=== PATIENT | male | born 1985 | race Caucasian/White ===

== ENCOUNTER 2018-04-24 12:20 | Inpatient (IN) ==
[2018-04-24] MEDS ORDERED: Piperacillin/Tazobactam 3.375 GM in 0.9 % Sodium Chloride Mini Bag 100 ML IVPB ONE (13:18)
[2018-04-24] MEDS ORDERED: *HR* FentaNYL (PF) 100 MCG/2 ML VIAL IVP ONE (13:23)
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
[2018-04-24 13:38] LABS: Basophils # 0.1 K/mcL (0.0-0.2); Basophils % 0.8 %; Eosinophils # 0.2 K/mcL (0.0-0.6); Hematocrit 51.2 % (37.5-50.1); Hemoglobin 17.2 g/dL (12.9-16.9); Immature Granulocytes % 0.3 % (0-4); Lymphocytes # 2.8 K/mcL (0.6-4.6); Mean Corpuscular HGB Conc 33.6 g/dL (31.6-35.5); Mean Corpuscular Volume 86.3 fL (83.0-100.0); Mean Platelet Volume 9.9 fL (9.4-12.4); Monocytes # 0.8 K/mcL (0.0-1.3); Monocytes % 10.7 %; Neutrophils # 3.6 K/mcL (1.6-8.9); Platelet Count 270 K/mcL (140-400); Red Blood Count 5.93 M/mcL (4.19-5.50); Red Cell Distribution Width 12.2 % (11.5-14.5); Segmented Neutrophils % 48.2 %
[2018-04-24 13:52] LABS: BUN/Creatinine Ratio 16 (6-26); Blood Urea Nitrogen 16 mg/dL (6-20); Calcium 9.9 mg/dL (8.6-10.3); Carbon Dioxide 29 mEq/L (23-29); Chloride 100 mEq/L (98-107); Glucose 120 mg/dL (70-105); Osmolality,Calculated 284 (280-300); Potassium 4.2 mEq/L (3.5-5.1); Sodium 136 mEq/L (136-145); eGFR For Non-African Americans > 60 (> 60)
[2018-04-24] MEDS: 0.9 % Sodium Chloride 1,000 ML IVC SCH ×3 (14:30→15:41)
[2018-04-24] MEDS ORDERED: Ibuprofen 400 MG TABLET PO PRN (15:47)
[2018-04-24] MEDS ORDERED: Acetaminophen 325 MG TABLET PO PRN (15:47)
[2018-04-24] MEDS ORDERED: Naloxone 0.4 MG/ML INJ IVP PRN (15:47)
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
--- NOTE | 2018-04-24 17:18 | Internal Med History&Physical ---
<China Vasquez - Last Filed: 04/24/18 17:39> Date of Encounter: 04/24/18 Time of Encounter: 03:05 Internal Medicine - H&P: HPI Chief complaint: left foot pain Admitted From: Emergency Dept Plans for Post Hospital Care: Home History of present illness: Mr. Singh is a 32 year old male who presented to the ED complaining of left foot pain. He has history of hepatitis C and this has not obtained any treatment which he was urged to follow-up with his PCP upon discharge. 3 weeks ago he recently injured it after a fork lift ran through his left foot. He went to the urgent care soon after and noted that x-ray of the foot at the time did not show any fractures. His foot became edematous and erythematous and he was referred to [facility] and subsequently he was referred to podiatry. He was started on Keflex which he took for 10 days. He noted the foot was not healing and was started on Bactrim which he took for 1 week. Since his injury he has difficulty bearing weight on the left foot limited due to pain. He notes that his sensation of the foot is intact denies any paresthesia. Additionally he mentioned that the foreign object that was recently localized on his left foot occurred about 7 months ago. He is also complaining of nausea for the past one day and one bout of emesis yesterday. And complains of subjective fever, denies chills, shortness of breath, chest pain, abdominal pain, changes in his bowels. Past Med Surg Social Fam HX - Past Medical History Medical history: no medical history Additional medical history: IVDA; on Suboxone Psychiatric history: depression - Past Surgical History Surgical History: other Additional surgical history: t&a, left testicle removed - Social History Smoking Status: Current every day smoker Packs per day: 1 Smokeless Tobacco Status: No Alcohol use: none, occasionally (history of past heavy alcohol use, stopped 4 years ago per patient) Drug use: opiates, IV Drug Use - Family History Maternal Grandfather Hx Family Cardiac Disorders: Yes Internal Medicine - H&P: Meds Naproxen [Naprosyn] 500 mg PO BID PRN 04/24/18 [History] Sulfamethoxazole/Trimeth DS [Bactrim DS] 1 each PO BID 04/24/18 [History] Allergy/AdvReac Type Severity Reaction Status Date / Time codeine Allergy Hives Verified 04/24/18 12:37 tramadol Allergy Hives Verified 04/24/18 12:37 All Systems PM: A 10-system review of systems was performed and is negative for pertinent findings except as documented above in the HPI. - Constitutional Constitutional: no chills, no fever(s), no weakness - EENT Eyes: no blurry vision, no change in vision, no pain - Cardiovascular Cardiovascular ROS IM: no chest pain, no diaphoresis, no dyspnea, no orthopnea, no palpitations - Respiratory Respiratory: no dyspnea, no wheezing - Gastrointestinal Gastrointestinal: nausea, no abdominal pain, no diarrhea - Musculoskeletal Musculoskeletal ROS IM: back pain (chronic low back pain), no muscle cramps, no muscle weakness, no numbness - Integumentary Integumentary IM: erythema (mild left dorsal aspect of foot), no rash - Neurological Neurological ROS: no abnormal gait, no dizziness, no numbness, no paresthesias, no tingling - Psychiatric Psychiatric: no anxiety, no confusion, no depression - Allergic/Immunologic Allergic/Immunologic: no wheezing - Constitutional Vitals: Temp Pulse Resp BP Pulse Ox 98.6 F 81 14 124/81 96 04/24/18 16:19 04/24/18 16:19 04/24/18 16:19 04/24/18 16:19 04/24/18 16:19 General appearance: Present: cooperative, A&O X 3, no acute distress Exam: General: Patient is alert, oriented, no acute distress, obese Head: atraumatic, normocephalic, Eye: normal appearance, PERRL, no scleral icterus, no conjunctival injection ENT: mucous membranes moist, normal external ear exam Neck: normal inspection, trachea midline, full ROM Chest: normal inspection, symmetric chest rise Respiratory: Good respiratory effort. Breath sounds present No wheeze, crackles or rhonchi. Cardiovascular: Regular rate and rhythm. s1 and s2 No clicks, rubs, gallops, or murmurs. Abdomen: Bowel sounds present normoactive x-4 quadrants. Abdomen is soft, nondistended. no epigastric tenderness. No guarding or rebound. Musculoskeletal: Tenderness of the left dorsal aspect of the foot, pain with active and passive motion of the left foot. No edema, no calf tenderness Skin: lower extremities cool to touch bilaterally Neuro: Alert and oriented x3. Psych: Patient's affect is normal, thought content congruent. - Head Head exam: Present: atraumatic, normocephalic - Expanded Head Exam Head exam expanded: Absent: contusion, hematoma, raccoon eyes - Eye Eye exam: Present: normal appearance, sclera anicteric. Absent: EOMI - ENT ENT exam: Present: mucous membranes moist - Neck Neck exam general surgery: Present: full ROM, trachea midline. Absent: lymphadenopathy - Respiratory Respiratory exam: Present: CTAB. Absent: rhonchi, stridor, wheezes - Cardiovascular Cardiovascular exam: Present: RRR, +S1, +S2. Absent: clicks, gallop - GI/Abdominal GI/Abdominal exam: Present: normal bowel sounds, soft. Absent: firm - Extremities Exam Extremities exam: Present: tenderness (of the left dorsal aspect of the foot ). Absent: joint swelling, pedal edema - Expanded Lower Extremities Exam Foot/Toe exam: Present: tenderness (of the dorsal aspect of left foot. Tenderness with passive and active motion. Pulses intact). Absent: ecchymosis, swelling - Neurological Exam Neurological exam: Present: alert, normal gait, oriented X3 - Psychiatric Psychiatric exam: Present: normal affect, normal mood - Skin Skin exam: Present: cyanosis (mild cyanosis noted of the left dorsal aspect), dry, intact Internal Med - H&P Results - Labs CBC & Chem 7: 04/24/18 13:13 04/24/18 13:13 Labs: Short CBC 04/24/18 Range/Units 13:13 WBC 7.4 (4.3-11.1) K/mcL Hgb 17.2 H (12.9-16.9) g/dL Hct 51.2 H (37.5-50.1) % Plt Count 270 (140-400) K/mcL Neutrophils # 3.6 (1.6-8.9) K/mcL BMP 04/24/18 13:13 Sodium 136 Potassium 4.2 Chloride 100 Carbon Dioxide 29 BUN 16 Creatinine 0.97 Glucose 120 H Calcium 9.9 - Impressions ITS Impressions Foot X-Ray 04/24/18 13:18 IMPRESSION: Persistent soft tissue foreign body D/ / Joe Berman MD / Joe Berman MD Interpreting Provider: Joe Berman MD - Assessment and plan (1) Cellulitis Current Visit: Yes Status: Acute Assessment and plan: Dorsal aspect of left foot secondary to recent injury caused by a forklift He also has a foreign object in his left foot History of IV drug use Has received 10 of Keflex and 1 week of Bactrim without any relief X-ray does not show any edema or bony abnormality Slight decrease in sensation of the lateral aspect of left foot Dorsalis pedis and posterior tibial pulses are intact Started on Zosyn day 1 vancomycin day 1 Plan for surgery by podiatry in the morning Nothing by mouth after midnight Qualifiers: Site of cellulitis: extremity Site of cellulitis of extremity: lower extremity Laterality: left Qualified Code(s): L03.116 - Cellulitis of left lower limb (2) Methamphetamine abuse Current Visit: No Status: Acute Assessment and plan: History of methamphetamine use He notes that he stopped using it one year ago (3) Retained foreign body Current Visit: Yes Status: Acute Assessment and plan: X-ray of the left foot noted metallic foreign body representing fragment of pain in between the shafts of third and fourth metatarsal He has history of IV drug use and denied injecting himself in his foot He attributes still foreign object to an injury that occurred 7 months ago and 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 Podiatry is consulted and will perform surgical intervention tomorrow NPO after midnight (4) Pain Current Visit: Yes Status: Acute Assessment and plan: Left foot pain worsened with bearing weight secondary to recent injury He has tried NSAIDs and ice to alleviate the pain While resting the pain is tolerable He notes allergy to codeine and tramadol which causes hives Ibuprofen or Tylenol for mild pain Toradol for moderate pain Morphine for severe pain (5) Hepatitis C Current Visit: Yes Status: Acute Assessment and plan: History of hepatitis C He attributes it to IV drug use He has not obtained any treatments for his hepatitis C He is urged to follow-up with his PCP upon discharge for hepatitis C treatment options Qualifiers: Viral hepatitis chronicity: chronic Hepatic coma status: without hepatic coma Qualified Code(s): B18.2 - Chronic viral hepatitis C (6) DVT prophylaxis Current Visit: Yes Status: Acute Assessment and plan: SubQ heparin (7) Nicotine dependence Current Visit: Yes Status: Acute Assessment and plan: Smokes 1 pack per day Declined nicotine patch at this time Qualifiers: Nicotine product type: cigarettes Substance use status: uncomplicated Qualified Code(s): F17.210 - Nicotine dependence, cigarettes, uncomplicated - Time Spent With Patient Total time spent is greater than 50% in coordination of care (as documented) at patient's floor/unit and/or counseling patient: <Louie Boogie - Last Filed: 04/24/18 19:19> Date of Encounter: 04/24/18 Internal Medicine - H&P: HPI History of present illness: Mr. Singh is a 32 year old male All Systems PM: A 10-system review of systems was performed and is negative for pertinent findings except as documented above in the HPI. - Constitutional Vitals: Temp Pulse Resp BP Pulse Ox 97.9 F 84 16 124/78 100 04/24/18 18:24 04/24/18 18:24 04/24/18 18:24 04/24/18 18:24 04/24/18 18:24 Internal Med - H&P Results - Labs CBC & Chem 7: 04/24/18 13:13 04/24/18 13:13 Labs: Short CBC 04/24/18 Range/Units 13:13 WBC 7.4 (4.3-11.1) K/mcL Hgb 17.2 H (12.9-16.9) g/dL Hct 51.2 H (37.5-50.1) % Plt Count 270 (140-400) K/mcL Neutrophils # 3.6 (1.6-8.9) K/mcL BMP 04/24/18 13:13 Sodium 136 Potassium 4.2 Chloride 100 Carbon Dioxide 29 BUN 16 Creatinine 0.97 Glucose 120 H Calcium 9.9 - Impressions ITS Impressions Foot X-Ray 04/24/18 13:18 IMPRESSION: Persistent soft tissue foreign body D/ / Joe Berman MD / Joe Berman MD Interpreting Provider: Joe Berman MD - Assessment and plan (1) Methamphetamine abuse Current Visit: No Status: Acute (2) Retained foreign body Current Visit: Yes Status: Acute (3) Cellulitis Current Visit: Yes Status: Acute Qualifiers: Site of cellulitis: extremity Site of cellulitis of extremity: lower extremity Laterality: left Qualified Code(s): L03.116 - Cellulitis of left lower limb (4) Pain Current Visit: Yes Status: Acute (5) DVT prophylaxis Current Visit: Yes Status: Acute (6) Hepatitis C Current Visit: Yes Status: Acute Qualifiers: Viral hepatitis chronicity: chronic Hepatic coma status: without hepatic coma Qualified Code(s): B18.2 - Chronic viral hepatitis C (7) Nicotine dependence Current Visit: Yes Status: Acute Qualifiers: Nicotine product type: cigarettes Substance use status: uncomplicated Qualified Code(s): F17.210 - Nicotine dependence, cigarettes, uncomplicated - Time Spent With Patient Total time spent is greater than 50% in coordination of care (as documented) at patient's floor/unit and/or counseling patient: - Attending Attestation I have seen and examined this patient independently. I have discussed with resident physician Dr Vasquez regarding the management plan. Agree with the documentation.
[2018-04-24] MEDS: *HR* Heparin 5,000 UNIT/ML VIAL SQ SCH (17:34)
[2018-04-24] MEDS: MORPHINE SUL Oral CONC 10 MG/0.5 ML ORAL.SYG SL PRN ×2 (18:10→23:56)
--- NOTE | 2018-04-24 18:32 | Anesthesia Evaluation PreOp ---
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: Denies Any Significant HX Other Medical History: Other (hx IVDU (last used years ago); used to be on suboxone but no longer takes this medication) Anesthesia History: No Prior Anesthetic Complications Alcohol Use: none, occasionally (history of past heavy alcohol use, stopped 4 years ago per patient) Drug use: opiates, IV Drug Use Medications and Allergies Naproxen [Naprosyn] 500 mg PO BID PRN 04/24/18 [History] Sulfamethoxazole/Trimeth DS [Bactrim DS] 1 each PO BID 04/24/18 [History] Allergy/AdvReac Type Severity Reaction Status Date / Time codeine Allergy Hives Verified 04/24/18 12:37 tramadol Allergy Hives Verified 04/24/18 12:37 - Meds/Allergy Pre-op Review Medications Reviewed: Yes Allergies Reviewed: Yes Beta Blockers on Current Med List: No Anesthesia Results - Labs 04/24/18 13:13 04/24/18 13:13 Anesthesia Exam Last Vital Signs Temp 97.9 F 04/24/18 18:24 Pulse 84 04/24/18 18:24 Resp 16 04/24/18 18:24 BP 124/78 04/24/18 18:24 Pulse Ox 100 04/24/18 18:24 Weight: 75 kg NPO (# of Hours): > 8 hrs - HEENT Pupil (Motor): Pupils equal, EOMI Mallampati: II Teeth: Normal Oral Opening: Greater than 3 - [place] GLUE DRIER LOC: Oriented - Cardiac Rhythm: Regular Murmur: None - Pulmonary Breath Sounds: bilateral Clear Respiratory Effort: Symmetrical Anesthesia Assess/Plan ASA Score: 2 Level of consciousness: Cooperative Anesthetic Plan: General Monitoring Plan: Standard Monitors Recovery Plan: PACU
[2018-04-24 19:12] LABS: Amphetamine Screen,Urine Negative ng/mL (Cutoff=1000); Barbiturate Screen,Urine Negative ng/mL (Cutoff=200); Benzodiazepines Screen,Urine Negative ng/mL (Cutoff=200); Cannabinoid Screen,Urine Negative ng/mL (Cutoff = 50); Cocaine Screen,Urine Negative ng/mL (Cutoff= 300); Opiate Screen,Urine Negative ng/mL (Cutoff=300); Phencyclidine Screen,Urine Negative ng/mL (Cutoff=25)
[2018-04-24] MEDS: Piperacillin/Tazobactam 3.375 GM in 0.9 % Sodium Chloride Mini Bag 100 ML IVPB SCH (23:57)
[2018-04-25] MEDS: *HR* Heparin 5,000 UNIT/ML VIAL SQ SCH ×2 (06:15→18:40)
[2018-04-25] MEDS: MORPHINE SUL Oral CONC 10 MG/0.5 ML ORAL.SYG SL PRN ×2 (07:15→20:04)
[2018-04-25] MEDS: Piperacillin/Tazobactam 3.375 GM in 0.9 % Sodium Chloride Mini Bag 100 ML IVPB SCH ×3 (08:01→23:16)
--- NOTE | 2018-04-25 08:43 | Internal Med Progress Note ---
<Ethan Joe - Last Filed: 04/25/18 08:52> Hospitalist Progress Note - Encounter Date of Encounter: 04/25/18 Time of Encounter: 08:15 - Subjective Interval History: Mr. Singh was seen and examined at bedside today. The patient was resting comfortably and was in no acute distress. Patient states pain is well controlled. Patient denies any other complaints at this time. Patient denies fever, chills, cough, CP, SOB, abdominal pain, calf pain, or nausea or vomiting. Patient is scheduled for formal I&D later today by Dr. Castellano. - Exam Vitals: Temp Pulse Resp BP Pulse Ox 98.0 F 81 14 101/61 96 04/25/18 06:37 04/25/18 06:37 04/25/18 06:37 04/25/18 06:37 04/25/18 06:37 Exam: General: Patient is alert, oriented, no acute distress. Head: atraumatic, normocephalic Eye: normal appearance, EOMI, no scleral icterus, no conjunctival injection Neck: trachea midline, full ROM Chest: normal inspection, symmetric chest rise Respiratory: Clear to auscultation bilaterally with no evidence of wheeze, crackles or rhonchi. Cardiovascular: Regular rate and rhythm. s1 and s2 normal. No clicks, rubs, gallops, or murmurs. Abdomen: Bowel sounds present, normoactive x-4 quadrants. Abdomen is soft, nondistended. no epigastric tenderness. No guarding or rebound. Extremities: Erythema and warmth dorsal aspect of left foot.No induration, no fluctuance, Tenderness over the dorsal aspect of the left foot, Tenderness over the most distal portion of plantar aspect of left foot, pain with active and passive motion of the 2nd, 3rd, 4th and 5th toes. No edema, no calf tenderness. No lymphadenopathy, no lymphangitis. DP and PT pulses 2+ bilaterally. Slight decrease in sensation over lateral aspect of left foot to light touch compared to contralateral side. Neuro: Alert and oriented x3. Psych: Patient's affect is normal, thought content congruent. - Assessment and Plan (1) Cellulitis Current Visit: Yes Status: Acute Assessment and Plan: a. Dorsal aspect of left foot secondary to recent injury caused by a forklift - He also has a foreign object in his left foot noted on Xray yesterday as well as previous xray c. History of IV drug use d. Has received 10 days of Keflex and 1 week of Bactrim without any relief e. X-ray does not show any edema or bony abnormality f. Slight decrease in sensation of the lateral aspect of left foot g. Dorsalis pedis and posterior tibial pulses are intact Plan: h. Continue Zosyn and Vancomycin i. Plan for formal I&D by podiatry today j. Keep NPO until surgery then advance diet as recommended by surgery k. Ibuprofen or Tylenol for mild pain l. Toradol for moderate pain m. Morphine for severe pain (2) Retained foreign body Current Visit: Yes Status: Acute Assessment and Plan: a. X-ray of the left foot noted metallic foreign body representing fragment of pain in between the shafts of third and fourth metatarsal - Foreign object noted on previous x-rays - He has history of IV drug use and denied injecting himself in his foot b. 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 Podiatry is consulted and will perform formal I&D today d. Keep NPO until surgery then advance diet as recommended by surgery (3) Hepatitis C Current Visit: Yes Status: Chronic Assessment and Plan: a. History of hepatitis C - AST = 48, ALT = 97; both slightly elevated compared to previous b. He attributes to IV drug use c. He has not obtained any treatments for his hepatitis C d. He is urged to follow-up with his PCP upon discharge for hepatitis C treatmen t options (4) Nicotine dependence Current Visit: Yes Status: Acute Assessment and Plan: a. Smokes 1 pack per day b.Declined nicotine patch at this time (5) Methamphetamine abuse Current Visit: No Status: Acute Assessment and Plan: a. History of methamphetamine use - UDS negative for all substances b. He notes that he stopped using it one year ago DVT Prophylaxis: subq heparin - Time Spent with Patient Total time spent is greater than 50% in coordination of care (as documented) at patient's floor/unit and/or counseling patient: Internal Medicine: Result - Labs CBC & Chem 7: 04/24/18 13:13 04/25/18 08:09 Labs: Short CBC 04/24/18 Range/Units 13:13 WBC 7.4 (4.3-11.1) K/mcL Hgb 17.2 H (12.9-16.9) g/dL Hct 51.2 H (37.5-50.1) % Plt Count 270 (140-400) K/mcL Neutrophils # 3.6 (1.6-8.9) K/mcL BMP 04/24/18 13:13 Sodium 136 Potassium 4.2 Chloride 100 Carbon Dioxide 29 BUN 16 Creatinine 0.97 Glucose 120 H Calcium 9.9 - Impressions Impressions Foot X-Ray 04/24/18 13:18 IMPRESSION: Persistent soft tissue foreign body D/ / Joe Berman MD / Joe Berman MD Interpreting Provider: Joe Berman MD Extremity Ultrasound 04/24/18 20:00 IMPRESSION: Findings most consistent with subcutaneous phlegmonous change between the 3rd and 4th toes. No drainable abscess identified. A linear foreign body is re-identified. D/ / 04/24/2018 20:30:19 Reggie Singleton MD / mady Interpreting Provider: Reggie Singleton MD Consult Discharge Plan - Plan Referrals: NONE,PCP [Primary Care Provider] - <KeaganLouie - Last Filed: 04/25/18 15:24> Hospitalist Progress Note - Encounter Date of Encounter: 04/25/18 - Exam Vitals: Temp Pulse Resp BP Pulse Ox 98.4 F 90 14 101/85 95 04/25/18 10:49 04/25/18 10:49 04/25/18 10:49 04/25/18 10:49 04/25/18 10:49 - Assessment and Plan (1) Methamphetamine abuse Current Visit: No Status: Acute (2) Retained foreign body Current Visit: Yes Status: Acute (3) Cellulitis Current Visit: Yes Status: Acute (4) Pain Current Visit: Yes Status: Acute (5) DVT prophylaxis Current Visit: Yes Status: Acute (6) Hepatitis C Current Visit: Yes Status: Chronic (7) Nicotine dependence Current Visit: Yes Status: Acute - Time Spent with Patient Total time spent is greater than 50% in coordination of care (as documented) at patient's floor/unit and/or counseling patient: Internal Medicine: Result - Labs CBC & Chem 7: 04/25/18 09:18 04/25/18 08:09 Labs: Short CBC 04/25/18 Range/Units 09:18 WBC 4.5 (4.3-11.1) K/mcL Hgb 14.1 D (12.9-16.9) g/dL Hct 42.6 (37.5-50.1) % Plt Count 214 (140-400) K/mcL Neutrophils # 1.8 (1.6-8.9) K/mcL BMP 04/25/18 08:09 Sodium 139 Potassium 4.2 Chloride 106 Carbon Dioxide 29 BUN 10 Creatinine 0.96 Glucose 123 H Calcium 8.9 Liver Function 04/25/18 Range/Units 08:09 Total Bilirubin 0.4 (0.3-1.0) mg/dL AST 48 H (13-39) Units/L ALT 97 H (7-52) Units/L Alkaline Phosphatase 89 (34-104) Units/L Albumin 3.7 (3.5-5.7) g/dL - Impressions Impressions Extremity Ultrasound 04/24/18 20:00 IMPRESSION: Findings most consistent with subcutaneous phlegmonous change between the 3rd and 4th toes. No drainable abscess identified. A linear foreign body is re-identified. D/ / 04/24/2018 20:30:19 Reggie Singleton MD / mady Interpreting Provider: Reggie Singleton MD - Attending Attestation I have seen and examined this patient independently. I have discussed with resident physician Dr Dr Marcus and medical student Mr Joe regarding the management plan. Agree with the documentation. __ <Ethan Joe - Last Filed: 04/25/18 08:52> (1) Cellulitis Qualifiers: Site of cellulitis: extremity Site of cellulitis of extremity: lower extremity Laterality: left Qualified Code(s): L03.116 - Cellulitis of left lower limb (3) Hepatitis C Qualifiers: Viral hepatitis chronicity: chronic Hepatic coma status: without hepatic coma Qualified Code(s): B18.2 - Chronic viral hepatitis C (4) Nicotine dependence Qualifiers: Nicotine product type: cigarettes Substance use status: uncomplicated Qualified Code(s): F17.210 - Nicotine dependence, cigarettes, uncomplicated <Louie Boogie - Last Filed: 04/25/18 15:24> (3) Cellulitis Qualifiers: Site of cellulitis: extremity Site of cellulitis of extremity: lower extremity Laterality: left Qualified Code(s): L03.116 - Cellulitis of left lower limb (6) Hepatitis C Qualifiers: Viral hepatitis chronicity: chronic Hepatic coma status: without hepatic coma Qualified Code(s): B18.2 - Chronic viral hepatitis C (7) Nicotine dependence Qualifiers: Nicotine product type: cigarettes Substance use status: uncomplicated Qualified Code(s): F17.210 - Nicotine dependence, cigarettes, uncomplicated
[2018-04-25 08:48] LABS: Alanine Aminotransferase 97 Units/L (7-52); Albumin 3.7 g/dL (3.5-5.7); Albumin/Globulin Ratio 1.5 (1.1-2.2); Alkaline Phosphatase 89 Units/L (34-104); Aspartate Amino Transferase 48 Units/L (13-39); BUN/Creatinine Ratio 10 (6-26); Bilirubin,Total 0.4 mg/dL (0.3-1.0); Blood Urea Nitrogen 10 mg/dL (6-20); Calcium 8.9 mg/dL (8.6-10.3); Carbon Dioxide 29 mEq/L (23-29); Chloride 106 mEq/L (98-107); Globulin 2.5 g/dL (2.4-3.5); Glucose 123 mg/dL (70-105); Osmolality,Calculated 288 (280-300); Potassium 4.2 mEq/L (3.5-5.1); Sodium 139 mEq/L (136-145); Total Protein 6.2 g/dL (6.4-8.9); eGFR For Non-African Americans > 60 (> 60)
[2018-04-25 09:17] LABS: Amphetamine Screen,Urine Negative ng/mL (Cutoff=1000); Barbiturate Screen,Urine Negative ng/mL (Cutoff=200); Benzodiazepines Screen,Urine Negative ng/mL (Cutoff=200); Cannabinoid Screen,Urine Negative ng/mL (Cutoff = 50); Cocaine Screen,Urine Negative ng/mL (Cutoff= 300); Opiate Screen,Urine Positive ng/mL (Cutoff=300); Phencyclidine Screen,Urine Negative ng/mL (Cutoff=25)
[2018-04-25 10:03] LABS: Basophils # 0.1 K/mcL (0.0-0.2); Basophils % 1.1 %; Eosinophils # 0.2 K/mcL (0.0-0.6); Eosinophils % 3.8 %; Hematocrit 42.6 % (37.5-50.1); Hemoglobin 14.1 g/dL (12.9-16.9); Immature Granulocytes % 0.2 % (0-4); Lymphocytes # 1.9 K/mcL (0.6-4.6); Lymphocytes % 42.4 %; Mean Corpuscular HGB Conc 33.1 g/dL (31.6-35.5); Mean Corpuscular Hemoglobin 29.1 pg (28.0-33.3); Mean Corpuscular Volume 87.8 fL (83.0-100.0); Mean Platelet Volume 10.1 fL (9.4-12.4); Monocytes # 0.6 K/mcL (0.0-1.3); Monocytes % 12.3 %; Neutrophils # 1.8 K/mcL (1.6-8.9); Platelet Count 214 K/mcL (140-400); Red Blood Count 4.85 M/mcL (4.19-5.50); Red Cell Distribution Width 12.1 % (11.5-14.5); Segmented Neutrophils % 40.2 %
[2018-04-25] MEDS ORDERED: 0.9 % Sodium Chloride 1,000 ML IVC SCH (14:15)
[2018-04-25] MEDS ORDERED: Albuterol 2.5 MG/3 ML NEBULIZER IH ONE (15:39)
[2018-04-25] MEDS ORDERED: Acetaminophen IV 1,000 MG/100 ML INFUS..BTL ONE (15:41)
[2018-04-25] MEDS ORDERED: Famotidine 20 MG/2 ML VIAL ONE (15:41)
[2018-04-25] MEDS ORDERED: Vancomycin 1,000 MG VIAL ONE (15:42)
[2018-04-25] MEDS ORDERED: Albuterol 2.5 MG/3 ML NEBULIZER ONE (15:46)
[2018-04-25] MEDS ORDERED: *HR* Midazolam HCl 2 MG/2 ML VIAL ONE (15:46)
[2018-04-25] MEDS ORDERED: Lidocaine -MPF 2% 2 ML VIAL ONE (15:46)
[2018-04-25] MEDS ORDERED: *HR* FentaNYL (PF) 100 MCG/2 ML VIAL ONE (15:46)
[2018-04-25] MEDS ORDERED: Propofol 500 MG/50 ML INFUS..BTL ONE (15:46)
[2018-04-25] MEDS ORDERED: *HR* Propofol 200 MG/20 ML VIAL IVP ONE (15:50)
[2018-04-25] MEDS ORDERED: *HR* PHENYLEPHRINE 1,000 MCG/10 ML SYRINGE IVP ONE (17:08)
--- NOTE | 2018-04-25 17:27 | Anesthesia Evaluation Post Op ---
Date of Encounter: 04/25/18 Time of Encounter: 17:26 - Vital Signs Vital Signs: Vital Signs/O2 Sat/Glucose, Most Recent Temp Pulse Resp BP Pulse Ox 98.4 F 67 15 120/74 99 04/25/18 10:49 04/25/18 17:11 04/25/18 17:11 04/25/18 17:11 04/25/18 17:11 - Lungs Lungs: Clear Ascult./Percussion - Airway Airway: Non-obstructed - Cardiovascular Regular Rate, Baseline Rhythm - Mental Status Mental Status: Alert & Oriented, Answers Appropriately - Pain Pain Scale: 0 Pain Scale used: Numeric (1 - 10) - Nausea Vomiting Nausea Vomiting: Not Present - Hydration Hydration: NPO Notes: 04/25/18 17:27 naac - Discharge PostOp Status: Transfer Patient to floor
[2018-04-25] MEDS ORDERED: Naloxone 0.4 MG/ML INJ IVP PRN (17:33)
[2018-04-25] MEDS ORDERED: Ibuprofen 400 MG TABLET PO PRN (17:33)
[2018-04-25] MEDS ORDERED: Acetaminophen 325 MG TABLET PO PRN (17:33)
--- NOTE | 2018-04-25 17:38 | Orthopedic Operative Note ---
Date of procedure: 04/25/18 Pre-op diagnosis: left foot infection, foreign body Post-op diagnosis: same Procedure: 04/25/18 17:34 1. Removal of foreign body left foot 2. Incision and drainage left foot to deep fascia Implants: None Complications: None Anesthesia: MAC Local Anesthetics: 0.5% Sensorcaine HCL SubQ (cc), 1% Lidocaine HCL SubQ (cc) Surgeon: Kevin Castellano Was there an assistant oceanographer present: No Estimated blood loss (cc): 1 Tourniquet Time (Minutes): 36 Specimen: soft tissue to pathology, foreign body to pathology Condition: stable Disposition: floor Procedure in Detail: 04/25/18 19:42 INDICATIONS AND CONSENT Romel Singh is a 32 year old male who initially presented with redness and pain to the left foot after a reported accident at work where he reports a fork lift ran over his foot on 04/04/2018. Xrays and CT showed no evidence of fracture or dislocation. He did have evidence of foreign body in the left forefoot noted on radiographs on 10/05/2017. He reported continued pain at the retained foreign body. On admission, patient denied any use of IV drugs or other injections in his foot. He had evidence of an abscess of the forefoot with streaking cellulitis up that foot that failed PO antibiotics. He was admitted to the hospital for IV antibiotics, which helped resolve the cellulitis. There was still evidence of non-viable soft tissue and infection at the 3rd interdigital space. Ultrasound of the food showed no evidence of abscess. Surgical intervention was warranted to debride non-viable soft tissue and to control infection. There was also plans to remove the foreign body noted on Xrays. We discussed the above procedures in detail. This included a discussion on the indications, contraindications, and possible complications including but not limited to: infection, non-healing wound, pain, swelling, bleeding, blood clots, heart complications, nerve injury, vascular injury, loss of limb, loss of life, possible wound vac and [facility] IV antibiotics, inability to remove the foreign body, and need for further surgery. We also reviewed the expected post operative course, including a discussion on the non-weightbearing status after this procedure. He related understanding of our discussion regarding this surgery. All questions were answered to his satisfaction, and a proper written informed consent was obtained, signed, and placed in the chart. No guarantees were given, stated or implied, as to the outcome of this procedure. PROCEDURE IN DETAIL The patient was seen in the pre-operative holding area by Anesthesia, where he was consented for MAC with local block. The patient was brought back to the operating room and placed on the bed in the supine position. A sign in was performed. A well-padded pneumatic left ankle tourniquet was then placed. Next, the left lower leg was scrubbed, prepped, and draped in the usual aseptic manner. A [place] Time-Out was performed, and all parties in the room agreed. Next, an Esmarch was used to exsanguinate the left foot. A total of 5mL of 1% lidocaine plain and 5mL of 0.5% marcaine plain was injected to the left dorsal foot along the planned surgical incision. The pneumatic ankle tourniquet was inflated to 250 mmHg. Fluoroscopy was used to confirm approximate location of the foreign body. A 15 blade was used to make a linear incision over the area of suspected abscess and possible puncture wound at the 3rd digital interspace, and extended proximally to the level of the retained foreign body. The incision was carried deep, bluntly, to the level of deep fascia between the 3rd and 4th metatarsals. No purulence was noted. All non-viable and necrotic soft tissue was sharply excised using a 15 blade. No tendon debridement was performed. The remaining soft tissue and bone appeared viable and healthy. A soft tissue culture was sent for aerobe, anaerobe, acid fast, and fungal. A freer and curved hemostat were used to separate the intrinsic musculature at the 3rd int ermetatarsal space until the foreign body was visualized. A small, needle shaped metallic foreign body was removed and sent to pathology. Confirmation of excision was noted on fluoroscopy. The wound was then irrigated with 3 liters of normal saline infused with 1g vancomycin. Next, the subcutaneous tissues were re-approximated using 4-0 Vicryl as a retention suture, and the skin was re-approximated under minimal tension using 4-0 nylon. A dry, sterile dressing was then applied, which consisted of: xeroform, 4x4's, Kerlix fluffs, Kerlix roll, and ESDRAS wrap. The left ankle tourniquet was then deflated, and a proper hyperemic response was noted to the digits on the left foot. Capillary refill time of the toes on the left foot was also noted to be brisk at this time. A sign-out was performed. The patient tolerated anesthesia and the procedure well, and was transferred to PAC-U with vital signs stable and vascular status intact to the left lower extremity. Needle and sponge counts were correct X 2 at the end of the case. Dr. Kevin Castellano was present, scrubbed, and participated in all vital aspects of the procedure. After a brief stay in PAC-U, the patient will be admitted back to the floor for continued monitoring and IV antibiotics. Patient will likely discharge on PO antibiotics based on operative culture results. Podiatry will continue to follow.
[2018-04-25] MEDS ORDERED: Piperacillin/Tazobactam 3.375 GM in 0.9 % Sodium Chloride Mini Bag 100 ML IVPB SCH (18:00)
[2018-04-25] MEDS: 0.9 % Sodium Chloride 1,000 ML IVC SCH (18:40)
[2018-04-26 03:16] LABS: Basophils # 0.1 K/mcL (0.0-0.2); Basophils % 0.9 %; Eosinophils # 0.2 K/mcL (0.0-0.6); Eosinophils % 2.6 %; Hemoglobin 13.3 g/dL (12.9-16.9); Immature Granulocytes % 0.3 % (0-4); Lymphocytes # 2.5 K/mcL (0.6-4.6); Lymphocytes % 43.7 %; Mean Corpuscular HGB Conc 33.3 g/dL (31.6-35.5); Mean Corpuscular Volume 87.3 fL (83.0-100.0); Mean Platelet Volume 9.6 fL (9.4-12.4); Monocytes # 0.6 K/mcL (0.0-1.3); Monocytes % 11.1 %; Neutrophils # 2.4 K/mcL (1.6-8.9); Platelet Count 189 K/mcL (140-400); Red Blood Count 4.58 M/mcL (4.19-5.50); Red Cell Distribution Width 12.1 % (11.5-14.5); Segmented Neutrophils % 41.4 %
[2018-04-26] MEDS: MORPHINE SUL Oral CONC 10 MG/0.5 ML ORAL.SYG SL PRN ×3 (03:33→19:53)
[2018-04-26 03:35] LABS: Blood Urea Nitrogen 9 mg/dL (6-20); Calcium 8.6 mg/dL (8.6-10.3); Carbon Dioxide 25 mEq/L (23-29); Chloride 109 mEq/L (98-107); Glucose 108 mg/dL (70-105); Osmolality,Calculated 287 (280-300); Sodium 139 mEq/L (136-145)
[2018-04-26 04:36] LABS: BUN/Creatinine Ratio 10 (6-26); eGFR For Non-African Americans > 60 (> 60)
[2018-04-26] MEDS: *HR* Heparin 5,000 UNIT/ML VIAL SQ SCH ×2 (05:12→17:32)
--- NOTE | 2018-04-26 08:02 | Internal Med Progress Note ---
<Ethan Joe - Last Filed: 04/26/18 11:27> Hospitalist Progress Note - Encounter Date of Encounter: 04/26/18 Time of Encounter: 07:45 - Subjective Interval History: Mr. Singh was seen and examined at bedside today. The patient was resting comfortably and was in no acute distress. Patient is post-op day 1 status post incision and drainage of left foot and foreign body removal with formal washout. Patient states pain is well controlled. Patient states he is now able to move his toes easily and are relatively pain free compared to the previous day. Patient denies any other complaints at this time. Patient denies fever, chills, cough, CP, SOB, abdominal pain, calf pain, or nausea or vomiting. - Exam Vitals: Temp Pulse Resp BP Pulse Ox 97.6 F 76 18 123/77 99 04/26/18 06:14 04/26/18 06:14 04/26/18 06:14 04/26/18 06:14 04/26/18 06:14 Exam: General: Patient is alert, oriented, no acute distress. Head: atraumatic, normocephalic Eye: normal appearance, EOMI, no scleral icterus, no conjunctival injection Neck: trachea midline, full ROM Chest: normal inspection, symmetric chest rise Respiratory: Clear to auscultation bilaterally with no evidence of wheeze, crackles or rhonchi. Cardiovascular: Regular rate and rhythm. s1 and s2 normal. No clicks, rubs, gallops, or murmurs. Abdomen: Bowel sounds present, normoactive x-4 quadrants. Abdomen is soft, nondistended. no epigastric tenderness. No guarding or rebound. Extremities: Limited left foot exam secondary to bandage in place, dressing c/d/i, patien able to purposely move active flexion and extension of all toes on left foot, capillary refill left great toe <2 seconds. Neuro: Alert and oriented x3. Psych: Patient's affect is normal, thought content congruent. - Assessment and Plan (1) Cellulitis Current Visit: Yes Status: Acute Assessment and Plan: a. Dorsal aspect of left foot secondary to recent injury caused by a forklift - He also has a foreign object in his left foot noted on Xray yesterday as well as previous xray c. History of IV drug use d. Has received 10 days of Keflex and 1 week of Bactrim without any relief e. X-ray does not show any edema or bony abnormality f. Slight decrease in sensation of the lateral aspect of left foot g. Dorsalis pedis and posterior tibial pulses are intact Plan: h. Continue Zosyn and Vancomycin today - Will likely discharge on PO antibiotics pending wound culture results i. Post-op day 1 status post incision and drainage with foreign body removal and formal washout - Post-operative note confirms removal of a small, needle shaped metallic foreign body from dorsal aspect of left foot - Confirmation of excision noted on fluoroscopy j. Advance normal diet k. Podiatry will continue to follow l. Ibuprofen or Tylenol for mild pain m. Toradol for moderate pain n. Morphine for severe pain (2) Retained foreign body Current Visit: Yes Status: Acute Assessment and Plan: Post-op day 1 status post incision and drainage of left foot with foreign body removal and formal washout - Excision of small, needle shaped metallic foreign body removed intra- operatively - Excision of foreign body confirmed on fluoroscopy X-ray of the left foot noted metallic foreign body representing fragment of pain in between the shafts of third and fourth metatarsal - Foreign object noted on previous x-rays - He has history of IV drug use and denied injecting himself in his foot He attributes foreign object to an injury that occurred 7 months ago and 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 History of hepatitis C - AST = 48, ALT = 97; both slightly elevated compared to previous b. He attributes to IV drug use c. He has not obtained any treatments for his hepatitis C d. He is urged to follow-up with his PCP upon discharge for hepatitis C treatment options (4) Nicotine dependence Current Visit: Yes Status: Acute Assessment and Plan: a. Smokes 1 ppd b. Continues to not request nicotine patch (5) Methamphetamine abuse Current Visit: No Status: Acute Assessment and Plan: a. History of methamphetamine use - UDS negative for all substances b. He notes that he stopped using it one year ago DVT Prophylaxis: subq heparin and scd's on right leg - Time Spent with Patient Total time spent is greater than 50% in coordination of care (as documented) at patient's floor/unit and/or counseling patient: Internal Medicine: Result - Labs CBC & Chem 7: 12/20/18 03:06 04/26/18 03:06 Labs: Short CBC 04/25/18 04/26/18 Range/Units 09:18 03:06 WBC 4.5 5.8 (4.3-11.1) K/mcL Hgb 14.1 D 13.3 (12.9-16.9) g/dL Hct 42.6 40.0 (37.5-50.1) % Plt Count 214 189 (140-400) K/mcL Neutrophils # 1.8 2.4 (1.6-8.9) K/mcL BMP 04/25/18 04/26/18 08:09 03:06 Sodium 139 139 Potassium 4.2 4.0 Chloride 106 109 H Carbon Dioxide 29 25 BUN 10 9 Creatinine 0.96 0.88 Glucose 123 H 108 H Calcium 8.9 8.6 Liver Function 04/25/18 Range/Units 08:09 Total Bilirubin 0.4 (0.3-1.0) mg/dL AST 48 H (13-39) Units/L ALT 97 H (7-52) Units/L Alkaline Phosphatase 89 (34-104) Units/L Albumin 3.7 (3.5-5.7) g/dL - Impressions Impressions Extremity Ultrasound 04/24/18 20:00 IMPRESSION: Findings most consistent with subcutaneous phlegmonous change between the 3rd and 4th toes. No drainable abscess identified. A linear foreign body is re-identified. D/ / 04/24/2018 20:30:19 Reggie Singleton MD / mady Interpreting Provider: Reggie Singleton MD Fluoroscopy 04/25/18 16:57 IMPRESSION: Intraprocedural fluoroscopic spot images as above. See separate procedure report for more information. D/ / 04/25/2018 17:22:13 Moses Womack MD / dani Interpreting Provider: Moses Womack MD Consult Discharge Plan - Plan Additional Instructions: Follow up outpatient with Dr. Fisher in 1 week. Please make appointment prior to D/C. Referrals: Kevin Castellano, DPM [Partnered Physician] - NONE,PCP [Primary Care Provider] - <Louie Boogie - Last Filed: 04/26/18 18:33> Hospitalist Progress Note - Encounter Date of Encounter: 04/26/18 - Exam Vitals: Temp Pulse Resp BP Pulse Ox 98.6 F 96 16 143/65 99 04/26/18 15:11 04/26/18 15:11 04/26/18 15:11 04/26/18 15:11 04/26/18 15:11 - Assessment and Plan (1) Methamphetamine abuse Current Visit: No Status: Acute (2) Retained foreign body Current Visit: Yes Status: Acute (3) Cellulitis Current Visit: Yes Status: Acute (4) Pain Current Visit: Yes Status: Acute (5) DVT prophylaxis Current Visit: Yes Status: Acute (6) Hepatitis C Current Visit: Yes Status: Chronic (7) Nicotine dependence Current Visit: Yes Status: Acute - Time Spent with Patient Total time spent is greater than 50% in coordination of care (as documented) at patient's floor/unit and/or counseling patient: Internal Medicine: Result - Labs CBC & Chem 7: 04/26/18 03:06 04/26/18 03:06 Labs: Short CBC 04/26/18 Range/Units 03:06 WBC 5.8 (4.3-11.1) K/mcL Hgb 13.3 (12.9-16.9) g/dL Hct 40.0 (37.5-50.1) % Plt Count 189 (140-400) K/mcL Neutrophils # 2.4 (1.6-8.9) K/mcL BMP 04/26/18 03:06 Sodium 139 Potassium 4.0 Chloride 109 H Carbon Dioxide 25 BUN 9 Creatinine 0.88 Glucose 108 H Calcium 8.6 - Impressions Impressions Fluoroscopy 04/25/18 16:57 IMPRESSION: Intraprocedural fluoroscopic spot images as above. See separate procedure report for more information. D/ / 04/25/2018 17:22:13 Moses Womack MD / dani Interpreting Provider: Moses Womack MD - Attending Attestation I have seen and examined this patient independently. I have discussed with resident physician Dr Marcus and medical student Elizabethtessa regarding the management plan. Agree with the documentation. <Ethan Joe W - Last Filed: 04/26/18 11:27> (1) Cellulitis Qualifiers: Site of cellulitis: extremity Site of cellulitis of extremity: lower extremity Laterality: left Qualified Code(s): L03.116 - Cellulitis of left lower limb (3) Hepatitis C Qualifiers: Viral hepatitis chronicity: chronic Hepatic coma status: without hepatic coma Qualified Code(s): B18.2 - Chronic viral hepatitis C (4) Nicotine dependence Qualifiers: Nicotine product type: cigarettes Substance use status: uncomplicated Qualified Code(s): F17.210 - Nicotine dependence, cigarettes, uncomplicated <Louie Boogie - Last Filed: 04/26/18 18:33> (3) Cellulitis Qualifiers: Site of cellulitis: extremity Site of cellulitis of extremity: lower extremity Laterality: left Qualified Code(s): L03.116 - Cellulitis of left lower limb (6) Hepatitis C Qualifiers: Viral hepatitis chronicity: chronic Hepatic coma status: without hepatic coma Qualified Code(s): B18.2 - Chronic viral hepatitis C (7) Nicotine dependence Qualifiers: Nicotine product type: cigarettes Substance use status: uncomplicated Qualified Code(s): F17.210 - Nicotine dependence, cigarettes, uncomplicated
[2018-04-26] MEDS: Piperacillin/Tazobactam 3.375 GM in 0.9 % Sodium Chloride Mini Bag 100 ML IVPB SCH ×3 (08:35→23:10)
--- NOTE | 2018-04-26 10:52 | Podiatry Progress Note ---
Date of Encounter: 04/26/18 Time of Encounter: 09:45 - Assessment and Plan (1) Cellulitis Current Visit: Yes Status: Acute Assessment: S/P Day #1 I&D of left foot. Dressing noted to LLE. No strike through noted. CFT <3 seconds WBC 5.8 Aerobe, anaerobe, fungal, and acid fast cultures pending Foreign body pathology pending ATB management per primary Plan: Leave dressing today, change tomorrow. Surgical shoe ordered. Wear when ambulating. Awaiting cultures, may consider discharge after final report. Qualifiers: Site of cellulitis: other site Qualified Code(s): L03.818 - Cellulitis of other sites (2) Retained foreign body Current Visit: Yes Status: Acute Assessment: S/P foreign body removal and I&D 04/25 Plan: See above Subjective Interval history: Patient awake in bed talking on phone. Denies any fevers, chills, nausea, vomiting, or diarrhea. Denies any chest pain, shortness of breath, or calf pain. Reports pain to left foot. Requesting pain medication Objective - Vital Signs Vital Signs: Vital Signs Temp Pulse Resp BP Pulse Ox 04/26/18 10:04 97.9 F 80 18 116/75 100 04/26/18 06:14 97.6 F 76 18 123/77 99 04/26/18 03:32 98.3 F 79 18 114/68 95 04/25/18 23:05 97.8 F 67 16 120/66 98 04/25/18 19:15 98.1 F 69 17 122/76 99 04/25/18 18:08 97.9 F 79 18 96 04/25/18 17:11 67 15 120/74 99 Intake and Output 04/25/18 04/26/18 04/26/18 23:59 07:59 15:59 Intake Total 640 / 640 100 / 100 240 / 240 Output Total Balance 639 / 639 100 / 100 240 / 240 Intake: IV Fluids 100 / 100 100 / 100 Zosyn 3.375 GM In 0.9 % Sodium 100 / 100 100 / 100 Chloride (Mini-Bag +) 100 ML @ 25 mls/hr IVPB Q8HR QUINN Rx#: [id number] Oral 540 / 540 240 / 240 Output: Estimated Blood Loss Other: Meal Breakfast Percent of Meal Consumed 100% # Voids 1 1 Weight 75.3 kg Patient Weight 04/26/18 23:59 Weight 75.3 kg - Exam Exam: Constitiutional: Alert and oriented x 3. Vascular: CFT <3 sec to all digits LLE, warm toes LLE, no calf pain with squeeze LLE Neurologic: Sensation to touch, normal plantar response, Normal position sense dorsiflexion/plantar flexion Dermatologic: Dressing to LLE, no strike through noted Musculoskeletal: 5/5 muscle strength and normal tone LLE. - Lab Result Diagrams: 04/26/18 03:06 04/26/18 03:06 Labs: Abnormal lab results Chloride 109 mEq/L (98-107) H 04/26/18 03:06 Glucose 108 mg/dL (70-105) H 04/26/18 03:06 AST 48 Units/L (13-39) H 04/25/18 08:09 ALT 97 Units/L (7-52) H 04/25/18 08:09 Serum Total Protein 6.2 g/dL (6.4-8.9) L 04/25/18 08:09 Urine Opiates Screen Positive ng/mL (Aheibu=159) H 04/25/18 07:15 Microbiology, Last 48 Hours 04/24/18 13:13 Blood Culture - Preliminary Peripheral Venipuncture Culture is incubating and being continuously monitored for growth. Final report to follow. 04/24/18 13:43 Blood Culture - Preliminary Peripheral Venipuncture Culture is incubating and being continuously monitored for growth. Final report to follow. Consult Discharge Plan - Plan Additional Instructions: Follow up outpatient with Dr. Fisher in 1 week. Please make appointment prior to D/C. Referrals: NONE,PCP [Primary Care Provider] - Kevin Castellano, DPM [Partnered Physician] -
[2018-04-27] MEDS: 0.9 % Sodium Chloride 1,000 ML IVC SCH (00:26)
[2018-04-27] MEDS: *HR* Heparin 5,000 UNIT/ML VIAL SQ SCH (06:24)
--- NOTE | 2018-04-27 07:54 | Internal Med Progress Note ---
<Ethan Joe - Last Filed: 04/27/18 13:19> Hospitalist Progress Note - Encounter Date of Encounter: 04/27/18 Time of Encounter: 07:45 - Subjective Interval History: Mr. Singh was seen and examined at bedside today. The patient was resting comfortably and was in no acute distress. Patient is post-op day 2 status post incision and drainage of left foot and foreign body removal with formal washout. Patient states pain is well controlled. Patient able to move toes without pain. Patient denies any other complaints at this time. Patient denies fever, chills, cough, CP, SOB, abdominal pain, calf pain, or nausea or vomiting. - Exam Vitals: Temp Pulse Resp BP Pulse Ox 98.1 F 80 16 132/87 94 04/27/18 06:13 04/27/18 06:13 04/27/18 06:13 04/27/18 06:13 04/27/18 06:13 Exam: General: Patient is alert, oriented, no acute distress. Head: atraumatic, normocephalic Eye: normal appearance, EOMI, no scleral icterus, no conjunctival injection Neck: trachea midline, full ROM Chest: normal inspection, symmetric chest rise Respiratory: Clear to auscultation bilaterally with no evidence of wheeze, crackles or rhonchi. Cardiovascular: Regular rate and rhythm. s1 and s2 normal. No clicks, rubs, gallops, or murmurs. Abdomen: Bowel sounds present, normoactive x-4 quadrants. Abdomen is soft, nondistended. no epigastric tenderness. No guarding or rebound. Extremities: Limited left foot exam secondary to bandage in place, dressing c/d/i, patien able to purposely move active flexion and extension of all toes on left foot, capillary refill left great toe <2 seconds. Neuro: Alert and oriented x3. Psych: Patient's affect is normal, thought content congruent. - Assessment and Plan (1) Cellulitis Current Visit: Yes Status: Acute Assessment and Plan: -Dorsal aspect of left foot 2/2 recent injury caused by forklift * Previously noted foreign object in left foot noted on xray, removed foreign body intraoperatively 04/25/18 -Hx IVDU -Received 10 days of Keflex and 1 week of Bactrim without relief prior to admission - Xray did not show any edema or bony abnormality Plan: -Intraoperative preliminary wound cultures does not show any growth, acid fast stain does not show any growth, foreign body pathology report final diagnosis of metallic foreign body, pending fungal culture * Plan to discharge home with PO antibiotics * WBC 5.8, afebrile, non-tachycardic, normotensive - Will discharge home on PO Doxycycline - Continue normal diet - Podiatry will continue to follow * Dressing c/d/i, will be changed by podiatry today * Plan to follow up with podiatry outpatient - Ibuprofen or Tylenol for mild pain - Toradol for moderate pain - Discontinue morphine for pain (2) Retained foreign body Current Visit: Yes Status: Acute Assessment and Plan: -Postop day 2 s/p I&D left foot with foreign body removal and formal washout * Excision of small, needle shaped metallic foreign body removed intra- operatively and confirmed on fluoroscopy - Pathology report of removed foreign body final diagnosis shows metallic fore ign body (3) Hepatitis C Current Visit: Yes Status: Chronic Assessment and Plan: -Hx of hepatitis C * AST =48, ALT =97; both slightly elevated compared to previous * Attributes to IVDU -He has not obtained any treatments for his hepatitis C, urged to follow up with his PCP upon discharge for hepatitis C treatment options (4) Nicotine dependence Current Visit: Yes Status: Acute Assessment and Plan: - Smokes 1 ppd - Nicotine patch upon request (5) Methamphetamine abuse Current Visit: No Status: Acute Assessment and Plan: -History of methamphetamine abuse - UDS negative for all substances - Notes he stopped using one year ago - Time Spent with Patient Total time spent is greater than 50% in coordination of care (as documented) at patient's floor/unit and/or counseling patient: Internal Medicine: Result - Labs CBC & Chem 7: 04/26/18 03:06 04/26/18 03:06 Consult Discharge Plan - Plan Additional Instructions: Follow up outpatient with Dr. Fisher in 1 week. Please make appointment prior to D/C. Referrals: Kevin Castellano P, DPM [Partnered Physician] - NONE,PCP [Primary Care Provider] - <oLuie Boogie - Last Filed: 04/27/18 16:32> Hospitalist Progress Note - Encounter Date of Encounter: 04/27/18 - Exam Vitals: Temp Pulse Resp BP Pulse Ox 98.1 F 73 18 127/78 97 04/27/18 15:43 04/27/18 15:43 04/27/18 15:43 04/27/18 15:43 04/27/18 15:43 - Assessment and Plan (1) Methamphetamine abuse Current Visit: No Status: Acute (2) Retained foreign body Current Visit: Yes Status: Acute (3) Cellulitis Current Visit: Yes Status: Acute (4) Pain Current Visit: Yes Status: Acute (5) DVT prophylaxis Current Visit: Yes Status: Acute (6) Hepatitis C Current Visit: Yes Status: Chronic (7) Nicotine dependence Current Visit: Yes Status: Acute - Time Spent with Patient Total time spent is greater than 50% in coordination of care (as documented) at patient's floor/unit and/or counseling patient: Internal Medicine: Result - Labs CBC & Chem 7: 04/26/18 03:06 04/26/18 03:06 - Attending Attestation I have seen and examined this patient independently. I have discussed with resident physician Dr Hanna and medical student Mr Joe regarding the management plan. Agree with the documentation. ____ <Ethan Joe - Last Filed: 04/27/18 13:19> (1) Cellulitis Qualifiers: Site of cellulitis: extremity Site of cellulitis of extremity: lower extre mity Laterality: left Qualified Code(s): L03.116 - Cellulitis of left lower limb (3) Hepatitis C Qualifiers: Viral hepatitis chronicity: chronic Hepatic coma status: without hepatic coma Qualified Code(s): B18.2 - Chronic viral hepatitis C (4) Nicotine dependence Qualifiers: Nicotine product type: cigarettes Substance use status: uncomplicated Qualified Code(s): F17.210 - Nicotine dependence, cigarettes, uncomplicated <Louie Boogie - Last Filed: 04/27/18 16:32> (3) Cellulitis Qualifiers: Site of cellulitis: extremity Site of cellulitis of extremity: lower extremity Laterality: left Qualified Code(s): L03.116 - Cellulitis of left lower limb (6) Hepatitis C Qualifiers: Viral hepatitis chronicity: chronic Hepatic coma status: without hepatic coma Qualified Code(s): B18.2 - Chronic viral hepatitis C (7) Nicotine dependence Qualifiers: Nicotine product type: cigarettes Substance use status: uncomplicated Qualified Code(s): F17.210 - Nicotine dependence, cigarettes, uncomplicated
[2018-04-27] MEDS: Piperacillin/Tazobactam 3.375 GM in 0.9 % Sodium Chloride Mini Bag 100 ML IVPB SCH (09:00)
[2018-04-27] MEDS: MORPHINE SUL Oral CONC 10 MG/0.5 ML ORAL.SYG SL PRN (09:08)
--- NOTE | 2018-04-27 13:03 | Podiatry Progress Note ---
Date of Encounter: 04/27/18 Time of Encounter: 11:30 - Assessment and Plan (1) Cellulitis Current Visit: Yes Status: Acute Assessment: S/P Day #2 I&D of left foot. Incision noted to left 4th metatarsal. Minimal erythema noted to surrounding tissue CFT <3 seconds WBC 5.8 Wound culture and acid fast culture preliminary negative Foreign body pathology returned metallic foreign body substance ATB management per primary Plan: Dressing changed. Placed adaptic, 4x4 dry gauze, and kerlex. Secured with ESDRAS bandage. Surgical shoe ordered. Wear when ambulating. Ok to d/c with PO ATB. Qualifiers: Site of cellulitis: other site Qualified Code(s): L03.818 - Cellulitis of other sites (2) Retained foreign body Current Visit: Yes Status: Acute Assessment: S/P foreign body removal and I&D 04/25 Plan: See above Subjective Interval history: Patient awake in bed. Denies any fevers, chills, nausea, vomiting, or diarrhea. Denies any chest pain, shortness of breath, or calf pain. Objective - Vital Signs Vital Signs: Vital Signs Temp Pulse Resp BP Pulse Ox 04/27/18 10:30 98.5 F 88 18 125/71 98 04/27/18 06:13 98.1 F 80 16 132/87 94 04/27/18 04:42 98 F 72 16 132/90 97 04/26/18 23:48 97.9 F 75 16 112/62 95 04/26/18 19:48 98.4 F 83 16 143/68 97 04/26/18 15:11 98.6 F 96 16 143/65 99 Intake and Output 04/26/18 04/27/18 04/27/18 23:59 07:59 15:59 Intake Total 350 / 350 350 / 350 Output Total 400 / 400 400 / 400 Balance -50 / -50 350 / 350 -400 / -400 Intake: IV Fluids 350 / 350 350 / 350 Zosyn 3.375 GM In 0.9 % Sodium 100 / 100 100 / 100 Chloride (Mini-Bag +) 100 ML @ 25 mls/hr IVPB Q8HR QUINN Rx#: [id number] Vancocin 1,500 MG In 0.9 % 250 / 250 250 / 250 Sodium Chloride 250 ML @ 166.67 mls/hr IVPB Q12H QUINN Rx#: [id number] Output: Urine 400 / 400 400 / 400 Other: # Voids 1 Weight 75.9 kg - Lab Result Diagrams: 04/26/18 03:06 04/26/18 03:06 Labs: Abnormal lab results Chloride 109 mEq/L (98-107) H 04/26/18 03:06 Glucose 108 mg/dL (70-105) H 04/26/18 03:06 AST 48 Units/L (13-39) H 04/25/18 08:09 ALT 97 Units/L (7-52) H 04/25/18 08:09 Serum Total Protein 6.2 g/dL (6.4-8.9) L 04/25/18 08:09 Urine Opiates Screen Positive ng/mL (Jdwgne=489) H 04/25/18 07:15 Microbiology, Last 48 Hours 04/25/18 16:18 Wound Culture - Preliminary Left Foot No growth. 04/25/18 16:18 Acid Fast Stain - Final Left Foot Consult Discharge Plan - Plan Additional Instructions: Follow up outpatient with Dr. Fisher in 1 week. Please make appointment prior to D/C. Referrals: Kevin Castellano, DPM [Partnered Physician] - NONE,PCP [Primary Care Provider] -
[2018-04-27 15:45] VITALS: BP 127/78
--- NOTE | 2018-04-27 16:35 | Discharge Summary ---
- NOTES TO OUTPATIENT PROVIDER Notes to Outpatient Provider: Cont po doxycyclin 100mg po bid for 7 days and f/u with podiatry as outpatient for further treatment. Orders not resulted at time of discharge: Pending orders 04/24/18 13:13 Culture,Blood [BC] Stat 04/25/18 16:18 AFB Culture, Tissue [TB] Routine AFB Smear [TB] Routine Culture,Anaerobic [RM] Routine Culture,Wound [RM] Routine Fungal Culture [MYC] Routine 04/25/18 16:57 XR foot 3V LT [XR] Routine Date of Encounter: 04/27/18 Time of Encounter: 15:00 - Discharge Diagnosis (1) Methamphetamine abuse Priority: Secondary Status: Acute (2) Retained foreign body Priority: Primary Status: Acute (3) Cellulitis Priority: Primary Status: Acute Qualifiers: Site of cellulitis: extremity Site of cellulitis of extremity: lower extremity Laterality: left Qualified Code(s): L03.116 - Cellulitis of left lower limb (4) Pain Priority: Primary Status: Acute (5) DVT prophylaxis Priority: Secondary Status: Acute (6) Hepatitis C Priority: Secondary Status: Chronic Qualifiers: Viral hepatitis chronicity: chronic Hepatic coma status: without hepatic coma Qualified Code(s): B18.2 - Chronic viral hepatitis C (7) Nicotine dependence Priority: Secondary Status: Acute Qualifiers: Nicotine product type: cigarettes Substance use status: uncomplicated Qualified Code(s): F17.210 - Nicotine dependence, cigarettes, uncomplicated Hospital course: Mr. Singh is a 32 year old male admitted for left foot cellulitis and foreign body. Patient was placed on IV antibiotic Vanco and Zosyn. Podiatry consult saw patient. Had a surgery of I and D and foreign body removal. Wound culture preliminary no growth. Patient has no fever or white count. Patient with discharge home with by mouth antibiotic and follow-up with podiatry as outpatient. I have seen and examined this patient today. Patient feels minimal pain. No fever . Vitals are stable. We will discharge patient on by mouth doxycycline 100 mg twice a day for 7 days and continue follow-up with podiatry as outpatient. Discharge discussed with: patient Time spent discussing smoking cessation with patient: 3 to 10 minutes - Time Spent with Patient Total time spent providing and/or coordinating discharge services:40 min Greater than 30 minutes - Discharge Medications Prescriptions: Ibuprofen [Motrin] 400 mg PO Q6HR PRN 5 Days #20 tablet PRN Reason: Mild Pain/Fever Doxycycline 100 mg PO BID #14 capsule Home Medications: Naproxen [Naprosyn] 500 mg PO BID PRN 04/24/18 [History] Doxycycline 100 mg PO BID #14 capsule 04/27/18 [Rx] Ibuprofen [Motrin] 400 mg PO Q6HR PRN 5 Days #20 tablet 04/27/18 [Rx] Allergies/Adverse Reactions: Allergy/AdvReac Type Severity Reaction Status Date / Time codeine Allergy Hives Verified 04/24/18 12:37 tramadol Allergy Hives Verified 04/24/18 12:37 Date of admission: 04/24/18 17:02 Primary care physician: PCP NONE Consults: 04/24/18 15:18 Consult to Podiatry [CONS] Stat Consulting Provider: Pod[facility] Reason for Consult: left foot infection Time Notified: 15:18 Call Completed: No 04/24/18 15:53 Consult to Physical Therapy [CONS] Routine Comment: Evaluate, develop and implement POC Reason for Consult: Post op evaluation Does patient have active BEDREST order?: No Is patient medically & hemodynamically stable?: Yes Discharging clinician: Louie Boogie Anticipated date of discharge: 04/27/18 - Constitutional Vitals: Temp Pulse Resp BP Pulse Ox 98.1 F 73 18 127/78 97 04/27/18 15:43 04/27/18 15:43 04/27/18 15:43 04/27/18 15:43 04/27/18 15:43 General appearance: Present: cooperative, A&O X 3, no acute distress Exam: General: Patient is alert, oriented, no acute distress. Head: atraumatic, normocephalic Eye: normal appearance, EOMI, no scleral icterus, no conjunctival injection Neck: trachea midline, full ROM Chest: normal inspection, symmetric chest rise Respiratory: Clear to auscultation bilaterally with no evidence of wheeze, crackles or rhonchi. Cardiovascular: Regular rate and rhythm. s1 and s2 normal. No clicks, rubs, gallops, or murmurs. Abdomen: Bowel sounds present, normoactive x-4 quadrants. Abdomen is soft, nondistended. no epigastric tenderness. No guarding or rebound. Extremities: Limited left foot exam secondary to bandage in place, dressing c/d/i, patien able to purposely move active flexion and extension of all toes on left foot, capillary refill left great toe <2 seconds. Neuro: Alert and oriented x3. Psych: Patient's affect is normal, thought content congruent. - Patient Status Disposition: Home, Self-Care Condition: Fair Functional capacity at discharge: independent ambulation Overall status at discharge: patient is progressing back to baseline - Discharge Instructions Follow Up With: Kevin Castellano, DPM [Partnered Physician] - NONE,PCP [Primary Care Provider] - Additional Instructions: Follow up outpatient with Dr. Fisher in 1 week. Please make appointment prior to D/C. - Diet and Activity Activity: increase activity as tolerated Diet: advance to your usual diet
[2018-04-27] MEDS ORDERED: Doxycycline 100 MG CAPSULE PO SCH (21:00)
== END 2018-04-27 18:23 | disposition home or self-care (01) | DRG 464 ==
LOC: EMEROOARM 12:20 → 3NENU 12:20
PROVIDERS: ADMIT Student in an Organized Health Care Education/Training Program; ATTEND Student in an Organized Health Care Education/Training Program